=== PATIENT | male | born 1985 | race Caucasian/White ===

== ENCOUNTER 2016-07-31 23:25 | Emergency (ER) | payer OTHER ==
--- NOTE | 2016-08-01 00:35 | ED CLINICAL REPORT ---
Clinical Report - Physicians/Mid Levels [facility] [address] [place] [address] 07/31/2016 23:28 Patient: CORIN MUELLER Time Seen: 23:33; initial patient contact. Arrived- By private vehicle. Historian- patient. HISTORY OF PRESENT ILLNESS Chief Complaint: DENTAL PAIN. This started today and is still present. It was gradual in onset. Pain described as moderate. The patient has had toothache, swelling of the face and facial pain. No swollen jaw or jaw pain. Similar symptoms previously: Several times. Recent medical care: Not recently seen/assessed. REVIEW OF SYSTEMS No fever, nausea, headache or vomiting. All systems otherwise negative, except as recorded above. PAST HISTORY Broken ankle . Testicle removal SURGERIES: Ankle repair . Appendectomy. Fractured pelvis . Testical removal . SOCIAL HISTORY Smoker - current status unknown. History of drug use: marijuana. ADDITIONAL NOTES The nursing notes have been reviewed with agreement regarding the chief complaint, PMH and patient medications and allergies. PHYSICAL EXAM Vital Signs: 07/31/2016 23:33 BP: 119/75. HR: 79. RR: 20. O2 saturation: 95%. Temp: 98.3 F. Pain level now: 7/10. Have been reviewed as normal. Appearance: Alert. No acute distress. Head: Normal external inspection. Eyes: Conjunctivae and eyelids normal. ENT: Mild, localized dental decay (upper right second premolar, upper right first molar and second molar). Mild dental tenderness. Pharynx normal. Gums normal. No trismus present. Neck: No adenopathy. CVS: Normal heart rate and rhythm. Heart sounds normal. Respiratory: No respiratory distress. Breath sounds normal. PROGRESS AND PROCEDURES Disposition: Discharged home in good and improved condition. Condition: good. CLINICAL IMPRESSION Moderate dental pain. INSTRUCTIONS Your Current Medications: CONTINUE TAKING THE FOLLOWING MEDICATIONS: None*. Prescription Medications: Hydrocodone/APAP 5mg / 325mg: take 1 orally every 6 hours as needed for pain. Dispense fifteen (15). No refill. Zofran (orally disintegrating tablets) 4 mg: take 1 orally every 6 hours as needed for nausea and vomiting. Dispense ten (10). Substitution is permissible. Amoxicillin 500 mg tablets: take 1 orally every 12 hours for 7 days Follow-up: Follow up with your doctor in about three days. Call for an appointment. Screening today revealed the patient's blood pressure to be in the normal range. (Electronically signed by Sina Sosa Dr. 08/01/2016 1:41)
--- NOTE | 2016-08-01 00:35 | ED NURSING NOTES ---
Clinical Report - Nurses [facility] [address] [place] [place] [address] 07/31/2016 23:28 [id number] Triage time 23:33 Jul 31 2016. Acuity: LEVEL 4. Chief Complaint: RIGHT UPPER TOOTHACHE and JAW PAIN and SWELLING OF JAW / FACE. SEPSIS SCREEN: Sepsis Screen: negative. Negative (no infection suspected/documented). JUAN COMA SCORE: [place] Coma Scale: 15- eyes open spontaneously (4); best verbal response- oriented x 4 (5); best motor response- obeys commands (6). --23:39 Kaylee Ling 23:33 07/31/16. BP: 119/75. HR: 79. RR: 20. O2 saturation: 95% on room air. Temp: 98.3 F (oral). Pain level now: 11/30. --23:39 Kaylee Ling. Weight: 77.1 kg stated. Height/Length: 70 inches Per Patient. BMI: 24.4. --23:37 Kaylee Ling. Medications None. --23:34 Kaylee Ling. Medication/allergy information source: the patient. --23:39 Kaylee Ling. Allergies No Known Drug Allergy. --23:34 Kaylee Ling. History Arrived by private vehicle. Historian: patient. Accompanied by family. This started today. ( Patient reports he has some temporary root canals that he believes need to be repaired. Patient reports sudden onset of pain and some facial swelling.). He has no dental appointment scheduled. PAST MEDICAL HX: Immunizations: up-to-date. SOCIAL HX: Smoker- current status unknown. Occasional alcohol use. History of drug use: marijuana. No infectious disease exposure. ABUSE ASSESSMENT: No report of abuse. FALL RISK ASSESSMENT: Fall risk assessment completed. No fall risk identified. NUTRITIONAL RISK ASSESSMENT: The nutritional risk assessment revealed no deficiencies. FUNCTIONAL ASSESSMENT: Functional assessment: no impairments noted. LEARNING NEEDS ASSESSMENT: The learning needs assessment revealed no barriers. SKIN INTEGRITY ASSESSMENT: Skin integrity risk assessment completed. No skin integrity risk identified. --23:39 Sushil Kaylee. PROBLEMS: Broken ankle . Testical removal . --23:36 Sushil Kaylee. ADDITIONAL SURGERIES: Ankle repair . Appendectomy. Fractured pelvis . Testical removal . --23:36 Sushil Kaylee. Interventions ID band on patient. To treatment room. --23:39 Sushil Kaylee. PHYSICAL ASSESSMENT GENERAL / NEURO / PSYCH: Alert. Oriented X 4. Appears in no acute distress. HEENT: Facial swelling present involving the area around the right eye. Pupils equal, round and reactive to light. Dental decay. RESPIRATORY: Respirations not labored. SKIN: Skin is warm and dry. --23:39 Sushil Kaylee. NURSING PROGRESS NOTES Reassurance given to the patient. Two patient identifiers checked. Call light placed in reach. Side rails up x 1. Bed placed in lowest position. Brakes of bed on. Patient ready for evaluation- chart flagged. --23:39 Sushil Kaylee 23:57 07/31/2016 Motrin PO Tablets 400 mg given. Allergies verified and confirmed 5 rights. --00:02 Sushil Kaylee 00:02 08/01/2016 Hydrocodone-APAP (Hydrocodone-Acetaminophen) PO 5/325 mg Tablets 1 tab given. Allergies verified, confirmed 5 rights and sedative warning given to the patient and patient's weed inspector. --00:02 Sushil Kaylee 00:02 08/01/2016 Zofran ODT (Ondansetron) PO Oral Disintegrating Tablets 4 mg given. Allergies verified and confirmed 5 rights. --00:02 Sushil Kaylee. DISPOSITION / DISCHARGE Departure time: 00:44. Condition at departure: improved. No learning barriers present. Discharge instructions provided and reviewed with the patient. Reviewed medication(s) side effects, precautions, dosing and course information. Prescription(s) given to the patient. Treatments reviewed. Reviewed referrals. Follow up contact number dental care. Patient verbalized understanding. Written instructions provided in [place] [employer]. No activity restrictions or note given. The patient was discharged by the physician. He was discharged home and accompanied by spouse. He left the Emergency Department ambulatory and via private vehicle. Spouse driving. FALL RISK ASSESSMENT: Fall risk assessment completed. No fall risk identified. --00:45 Felicia Lopez 00:42 08/01/16. BP: 126/74. HR: 74. RR: 16. O2 saturation: 100%. Temp: deferred. Pain level now 07/31. --00:45 Felicia Lopez Locked/Released at 08/01/2016 0:46 by Felicia Lopez
--- NOTE | 2016-08-01 00:35 | ED CLINICAL REPORT ---
Clinical Report - Physicians/Mid Levels [facility] [address] [place] [address] 07/31/2016 23:28 Patient: CORIN MUELLER Time Seen: 23:33; initial patient contact. Arrived- By private vehicle. Historian- patient. HISTORY OF PRESENT ILLNESS Chief Complaint: DENTAL PAIN. This started today and is still present. It was gradual in onset. Pain described as moderate. The patient has had toothache, swelling of the face and facial pain. No swollen jaw or jaw pain. Similar symptoms previously: Several times. Recent medical care: Not recently seen/assessed. REVIEW OF SYSTEMS No fever, nausea, headache or vomiting. All systems otherwise negative, except as recorded above. PAST HISTORY Broken ankle . Testicle removal SURGERIES: Ankle repair . Appendectomy. Fractured pelvis . Testical removal . SOCIAL HISTORY Smoker - current status unknown. History of drug use: marijuana. ADDITIONAL NOTES The nursing notes have been reviewed with agreement regarding the chief complaint, PMH and patient medications and allergies. PHYSICAL EXAM Vital Signs: 07/31/2016 23:33 BP: 119/75. HR: 79. RR: 20. O2 saturation: 95%. Temp: 98.3 F. Pain level now: 7/10. Have been reviewed as normal. Appearance: Alert. No acute distress. Head: Normal external inspection. Eyes: Conjunctivae and eyelids normal. ENT: Mild, localized dental decay (upper right second premolar, upper right first molar and second molar). Mild dental tenderness. Pharynx normal. Gums normal. No trismus present. Neck: No adenopathy. CVS: Normal heart rate and rhythm. Heart sounds normal. Respiratory: No respiratory distress. Breath sounds normal. PROGRESS AND PROCEDURES Disposition: Discharged home in good and improved condition. Condition: good. CLINICAL IMPRESSION Moderate dental pain. INSTRUCTIONS Your Current Medications: CONTINUE TAKING THE FOLLOWING MEDICATIONS: None*. Prescription Medications: Hydrocodone/APAP 5mg / 325mg: take 1 orally every 6 hours as needed for pain. Dispense fifteen (15). No refill. Zofran (orally disintegrating tablets) 4 mg: take 1 orally every 6 hours as needed for nausea and vomiting. Dispense ten (10). Substitution is permissible. Amoxicillin 500 mg tablets: take 1 orally every 12 hours for 7 days Follow-up: Follow up with your doctor in about three days. Call for an appointment. Screening today revealed the patient's blood pressure to be in the normal range. (Electronically signed by Sina Sosa Dr. 08/01/2016 1:41)
--- NOTE | 2016-08-01 00:35 | ED NURSING NOTES ---
Clinical Report - Nurses [facility] [address] [place] [address] 07/31/2016 23:28 [id number] Triage time 23:33 Jul 31 2016. Acuity: LEVEL 4. Chief Complaint: RIGHT UPPER TOOTHACHE and JAW PAIN and SWELLING OF JAW / FACE. SEPSIS SCREEN: Sepsis Screen: negative. Negative (no infection suspected/documented). JUAN COMA SCORE: [place] Coma Scale: 15- eyes open spontaneously (4); best verbal response- oriented x 4 (5); best motor response- obeys commands (6). --23:39 Kaylee Ling 23:33 07/31/16. BP: 119/75. HR: 79. RR: 20. O2 saturation: 95% on room air. Temp: 98.3 F (oral). Pain level now: 11/30. --23:39 Kaylee Ling. Weight: 77.1 kg stated. Height/Length: 70 inches Per Patient. BMI: 24.4. --23:37 Kaylee Ling. Medications None. --23:34 Kaylee Ling. Medication/allergy information source: the patient. --23:39 Kaylee Ling. Allergies No Known Drug Allergy. --23:34 Kaylee Ling. History Arrived by private vehicle. Historian: patient. Accompanied by family. This started today. ( Patient reports he has some temporary root canals that he believes need to be repaired. Patient reports sudden onset of pain and some facial swelling.). He has no dental appointment scheduled. PAST MEDICAL HX: Immunizations: up-to-date. SOCIAL HX: Smoker- current status unknown. Occasional alcohol use. History of drug use: marijuana. No infectious disease exposure. ABUSE ASSESSMENT: No report of abuse. FALL RISK ASSESSMENT: Fall risk assessment completed. No fall risk identified. NUTRITIONAL RISK ASSESSMENT: The nutritional risk assessment revealed no deficiencies. FUNCTIONAL ASSESSMENT: Functional assessment: no impairments noted. LEARNING NEEDS ASSESSMENT: The learning needs assessment revealed no barriers. SKIN INTEGRITY ASSESSMENT: Skin integrity risk assessment completed. No skin integrity risk identified. --23:39 Sushil Kaylee. PROBLEMS: Broken ankle . Testical removal . --23:36 Sushil Kaylee. ADDITIONAL SURGERIES: Ankle repair . Appendectomy. Fractured pelvis . Testical removal . --23:36 Sushil Kaylee. Interventions ID band on patient. To treatment room. --23:39 Sushil Kaylee. PHYSICAL ASSESSMENT GENERAL / NEURO / PSYCH: Alert. Oriented X 4. Appears in no acute distress. HEENT: Facial swelling present involving the area around the right eye. Pupils equal, round and reactive to light. Dental decay. RESPIRATORY: Respirations not labored. SKIN: Skin is warm and dry. --23:39 Sushil Kaylee. NURSING PROGRESS NOTES Reassurance given to the patient. Two patient identifiers checked. Call light placed in reach. Side rails up x 1. Bed placed in lowest position. Brakes of bed on. Patient ready for evaluation- chart flagged. --23:39 Sushil Kaylee 23:57 07/31/2016 Motrin PO Tablets 400 mg given. Allergies verified and confirmed 5 rights. --00:02 Sushil Kaylee 00:02 08/01/2016 Hydrocodone-APAP (Hydrocodone-Acetaminophen) PO 5/325 mg Tablets 1 tab given. Allergies verified, confirmed 5 rights and sedative warning given to the patient and patient's furniture servicer. --00:02 Sushil Kaylee 00:02 08/01/2016 Zofran ODT (Ondansetron) PO Oral Disintegrating Tablets 4 mg given. Allergies verified and confirmed 5 rights. --00:02 Sushil Kaylee. DISPOSITION / DISCHARGE Departure time: 00:44. Condition at departure: improved. No learning barriers present. Discharge instructions provided and reviewed with the patient. Reviewed medication(s) side effects, precautions, dosing and course information. Prescription(s) given to the patient. Treatments reviewed. Reviewed referrals. Follow up contact number dental care. Patient verbalized understanding. Written instructions provided in [place]. No activity restrictions or note given. The patient was discharged by the physician. He was discharged home and accompanied by spouse. He left the Emergency Department ambulatory and via private vehicle. Spouse driving. FALL RISK ASSESSMENT: Fall risk assessment completed. No fall risk identified. --00:45 Felicia Lopez 00:42 08/01/16. BP: 126/74. HR: 74. RR: 16. O2 saturation: 100%. Temp: deferred. Pain level now 07/31. --00:45 Felicia Lopez Locked/Released at 08/01/2016 0:46 by Felicia Lopez
--- NOTE | 2016-08-01 00:36 | ED ORDER SUMMARY ---
..... Patient: CORIN MUELLER OrderSheet [facility] VisitID: [id number] [address] [place] [address] 31y, M Registration Date/Time: 07/31/2016 ORDER SHEET Weight: 77.1 kg (stated) Allergies: No Known Drug Allergy GENERAL ORDERS: MEDICATION ORDERS: Motrin PO 400 mg (NOW) (23:54 07/31/2016 Lisette Maldonado) (Ack 23:55 HSoule) (0:02 HSoule) Hydrocodone-APAP PO 5/325 mg (NOW, HIGH ALERT MEDICATION) (23:55 07/31/2016 Lisette Maldonado) (Ack 23:55 HSoule) (0:02 HSoule) Zofran ODT PO 4 mg (NOW) (00:02 08/01/2016 HSoule verbal order read back to Lisette Maldonado) (0:02 HSoule) IV FLUIDS: ORDER SHEET NOTES: [Electronically signed by Janis Rg R.N. (00:46 08/01/2016)] [Electronically signed by Sina Sosa Dr. (01:41 08/01/2016)] [Electronically locked/signed by Janis Rg R.N. (00:46 08/01/2016)]
--- NOTE | 2016-08-01 00:36 | ED ORDER SUMMARY ---
..... Patient: CORIN MUELLER OrderSheet [facility] VisitID: [id number] [address] [place] [address] 31y, M Registration Date/Time: 07/31/2016 ORDER SHEET Weight: 77.1 kg (stated) Allergies: No Known Drug Allergy GENERAL ORDERS: MEDICATION ORDERS: Motrin PO 400 mg (NOW) (23:54 07/31/2016 Lisette Maldonado) (Ack 23:55 HSoule) (0:02 HSoule) Hydrocodone-APAP PO 5/325 mg (NOW, HIGH ALERT MEDICATION) (23:55 07/31/2016 Lisette Maldonado) (Ack 23:55 HSoule) (0:02 HSoule) Zofran ODT PO 4 mg (NOW) (00:02 08/01/2016 HSoule verbal order read back to Lisette Maldonado) (0:02 HSoule) IV FLUIDS: ORDER SHEET NOTES: [Electronically signed by Janis Rg R.N. (00:46 08/01/2016)] [Electronically signed by Sina Sosa Dr. (01:41 08/01/2016)] [Electronically locked/signed by Janis Rg R.N. (00:46 08/01/2016)]
--- NOTE | 2016-08-01 01:41 | ED MAR SUMMARY ---
..... Medication Administration Record [facility] [address] [place] [address] Patient: CORIN MUELLER Visit ID: [id number] 31y, M Weight: 77.1 kg Height/Length: 70 in BMI: 24.4 ALLERGIES: No Known Drug Allergy Given 23:57 07/31/2016 Kaylee Ling, Medication Administered: MOTRIN [PO], Dose: 400 mg Tablets PO. Medication Ordered: Motrin PO 400 mg (NOW). Given 00:02 08/01/2016 Kaylee Ling, Medication Administered: HYDROCODONE-APAP [PO] (HYDROCODONE-ACETAMINOPHEN), Dose: 1 tab 5/325 mg Tablets PO. Medication Ordered: Hydrocodone-APAP PO 5/325 mg (NOW, HIGH ALERT MEDICATION). Given 00:02 08/01/2016 Kaylee Ling, Medication Administered: ZOFRAN ODT [PO] (ONDANSETRON), Dose: 4 mg Oral Disintegrating Tablets PO. Medication Ordered: Zofran ODT PO 4 mg (NOW).
--- NOTE | 2016-08-01 01:41 | ED DISCHARGE INSTRUCTIONS ---
Patient: CORIN MUELLER General Instructions [facility] VisitID: [id number] [place] [address] 31y, M Registration Date/Time: 07/31/2016 Moderate dental pain. INSTRUCTIONS Your Current Medications: CONTINUE TAKING THE FOLLOWING MEDICATIONS: None*. Prescription Medications: Hydrocodone/APAP 5mg / 325mg: take 1 orally every 6 hours as needed for pain. Dispense fifteen (15). No refill. Zofran (orally disintegrating tablets) 4 mg: take 1 orally every 6 hours as needed for nausea and vomiting. Dispense ten (10). Substitution is permissible. Amoxicillin 500 mg tablets: take 1 orally every 12 hours for 7 days Follow-up: Follow up with your doctor in about three days. Call for an appointment. Screening today revealed the patient's blood pressure to be in the normal range. ADDITIONAL INFORMATION Dental Pain A crack or cavity in the tooth, which exposes the sensitive inner area of the tooth can cause tooth pain. An infection in the gum or the root of the tooth can cause pain and swelling. The pain is often made worse by drinking hot or cold fluids, or biting on hard foods. Pain may spread from the tooth to the ear or jaw on the same side. Home Care: Avoid hot and cold foods and liquids since your tooth may be sensitive to temperature changes. If your tooth is chipped or cracked, or if there is a large open cavity, apply OIL OF CLOVES (available [id number]-[id number] in drug stores) directly to the tooth to reduce pain. Some pharmacies carry an [id number]-[id number] "toothache kit." This contains a paste, which can be applied over the exposed tooth to decrease sensitivity. A cold pack on your jaw over the sore area may help reduce pain. You may use acetaminophen (Tylenol) or ibuprofen (Motrin, Advil) to control pain, unless another medicine was prescribed. [ NOTE: If you have chronic liver or kidney disease or ever had a stomach ulcer or GI bleeding, talk with your doctor before using these medicines.] If you have signs of an infection, an antibiotic will be given. Take it as directed. Follow-Up as directed with a dentist. Your pain may go away with the treatment given. However, only a dentist can fully evaluate and treat the cause and prevent the pain from coming back again. TOOTHACHE IS A SIGN OF DISEASE IN YOUR TOOTH AND SHOULD BE EXAMINED AND TREATED BY A DENTIST. Get Prompt Medical Attention if any of the following occur: Your face becomes swollen or red Pain worsens or spreads to the neck Fever over 100.4 F (38.0 C) Unusual drowsiness; headache or stiff neck; weakness or fainting Pus drains from the tooth Difficulty swallowing or breathing Hydrocodone Bitartrate, Acetaminophen Oral tablet What is this medicine? ACETAMINOPHEN; HYDROCODONE (a set a MALIK gamaliel fen; rishabh droe KOE done) is a pain reliever. It is used to treat mild to moderate pain. How should I use this medicine? Take this medicine by mouth. Swallow it with a full glass of water. Follow the directions on the prescription label. If the medicine upsets your stomach, take the medicine with food or milk. Do not take more than you are told to take. Talk to your commercial fisher regarding the use of this medicine in children. This medicine is not approved for use in children. What side effects may I notice from receiving this medicine? Side effects that you should report to your doctor or health medicare sales representative as soon as possible: allergic reactions like skin rash, itching or hives, swelling of the face, lips, or tongue breathing problems confusion feeling faint or lightheaded, falls stomach pain yellowing of the eyes or skin Side effects that usually do not require medical attention (report to your doctor or health medicare sales representative if they continue or are bothersome): nausea, vomiting stomach upset What may interact with this medicine? alcohol antihistamines isoniazid medicines for depression, anxiety, or psychotic disturbances medicines for sleep muscle relaxants naltrexone narcotic medicines (opiates) for pain phenobarbital ritonavir tramadol What if I miss a dose? If you miss a dose, take it as soon as you can. If it is almost time for your next dose, take only that dose. Do not take double or extra doses. Where should I keep my medicine? Keep out of the reach of children. This medicine can be abused. Keep your medicine in a safe place to protect it from theft. Do not share this medicine with anyone. Selling or giving away this medicine is dangerous and against the law. Store at room temperature between 15 and 30 degrees C (59 and 86 degrees F). Protect from light. Keep container tightly closed. Throw away any unused medicine after the expiration date. Discard unused medicine and used packaging carefully. Pets and children can be harmed if they find used or lost packages. What should I tell my health care provider before I take this medicine? They need to know if you have any of these conditions: brain tumor Crohn's disease, inflammatory bowel disease, or ulcerative colitis drink more than 3 alcohol-containing drinks per day drug abuse or addiction head injury heart or circulation problems kidney disease or problems going to the bathroom liver disease lung disease, asthma, or breathing problems an unusual or allergic reaction to acetaminophen, hydrocodone, other opioid analgesics, other medicines, foods, dyes, or preservatives or trying to get breast-feeding What should I watch for while using this medicine? Tell your doctor or health medicare sales representative if your pain does not go away, if it gets worse, or if you have new or a different type of pain. You may develop tolerance to the medicine. Tolerance means that you will need a higher dose of the medicine for pain relief. Tolerance is normal and is expected if you take the medicine for a long time. Do not suddenly stop taking your medicine because you may develop a severe reaction. Your body becomes used to the medicine. This does NOT mean you are addicted. Addiction is a behavior related to getting and using a drug for a non-medical reason. If you have pain, you have a medical reason to take pain medicine. Your doctor will tell you how much medicine to take. If your doctor wants you to stop the medicine, the dose will be slowly lowered over time to avoid any side effects. You may get drowsy or dizzy when you first start taking the medicine or change doses. Do not drive, use machinery, or do anything that may be dangerous until you know how the medicine affects you. Stand or sit up slowly. There are different types of narcotic medicines (opiates) for pain. If you take more than one type at the same time, you may have more side effects. Give your health care provider a list of all medicines you use. Your doctor will tell you how much medicine to take. Do not take more medicine than directed. Call emergency for help if you have problems breathing. The medicine will cause constipation. Try to have a bowel movement at least every 2 to 3 days. If you do not have a bowel movement for 3 days, call your doctor or health medicare sales representative. Too much acetaminophen can be very dangerous. Do not take Tylenol (acetaminophen) or medicines that contain acetaminophen with this medicine. Many non-prescription medicines contain acetaminophen. Always read the labels carefully. Ondansetron Oral disintegrating tablet What is this medicine? ONDANSETRON (on SPENCER se wyatt) is used to treat nausea and vomiting caused by chemotherapy. It is also used to prevent or treat nausea and vomiting after surgery. How should I use this medicine? These tablets are made to dissolve in the mouth. Do not try to push the tablet through the foil backing. With dry hands, peel away the foil backing and gently remove the tablet. Place the tablet in the mouth and allow it to dissolve, then swallow. While you may take these tablets with water, it is not necessary to do so. Talk to your commercial fisher regarding the use of this medicine in children. Special care may be needed. What side effects may I notice from receiving this medicine? Side effects that you should report to your doctor or health medicare sales representative as soon as possible: allergic reactions like skin rash, itching or hives, swelling of the face, lips, or tongue breathing problems dizziness fast or irregular heartbeat feeling faint or lightheaded, falls fever and chills swelling of the hands and feet tightness in the chest Side effects that usually do not require medical attention (report to your doctor or health medicare sales representative if they continue or are bothersome): constipation or diarrhea headache What may interact with this medicine? Do not take this medicine with any of the following medications: -apomorphine -cisapride -dofetilide -dronedarone -pimozide -thioridazine -ziprasidone This medicine may also interact with the following medications: -carbamazepine -phenytoin -rifampicin -tramadol -other medicines that prolong the QT interval (cause an abnormal heart rhythm) What if I miss a dose? If you miss a dose, take it as soon as you can. If it is almost time for your next dose, take only that dose. Do not take double or extra doses. Where should I keep my medicine? Keep out of the reach of children. Store between 2 and 30 degrees C (36 and 86 degrees F). Throw away any unused medicine after the expiration date. What should I tell my health care provider before I take this medicine? They need to know if you have any of these conditions: heart disease history of irregular heartbeat liver disease low levels of magnesium or potassium in the blood an unusual or allergic reaction to ondansetron, granisetron, other medicines, foods, dyes, or preservatives or trying to get breast-feeding What should I watch for while using this medicine? Check with your doctor or health medicare sales representative as soon as you can if you have any sign of an allergic reaction. Amoxicillin Trihydrate Oral tablet What is this medicine? AMOXICILLIN (a mox i ROOSEVELT in) is a penicillin antibiotic. It is used to treat certain kinds of bacterial infections. It will not work for colds, flu, or other viral infections. How should I use this medicine? Take this medicine by mouth with a glass of water. Follow the directions on your prescription label. You may take this medicine with food or on an empty stomach. Take your medicine at regular intervals. Do not take your medicine more often than directed. Take all of your medicine as directed even if you think your are better. Do not skip doses or stop your medicine early. Talk to your commercial fisher regarding the use of this medicine in children. While this drug may be prescribed for selected conditions, precautions do apply. What side effects may I notice from receiving this medicine? Side effects that you should report to your doctor or health medicare sales representative as soon as possible: allergic reactions like skin rash, itching or hives, swelling of the face, lips, or tongue breathing problems dark urine redness, blistering, peeling or loosening of the skin, including inside the mouth seizures severe or watery diarrhea trouble passing urine or change in the amount of urine unusual bleeding or bruising unusually weak or tired yellowing of the eyes or skin Side effects that usually do not require medical attention (report to your doctor or health medicare sales representative if they continue or are bothersome): dizziness headache stomach upset trouble sleeping What may interact with this medicine? amiloride control pills chloramphenicol macrolides probenecid sulfonamides tetracyclines What if I miss a dose? If you miss a dose, take it as soon as you can. If it is almost time for your next dose, take only that dose. Do not take double or extra doses. Where should I keep my medicine? Keep out of the reach of children. Store between 68 and 77 degrees F (20 and 25 degrees C). Keep bottle closed tightly. Throw away any unused medicine after the expiration date. What should I tell my health care provider before I take this medicine? They need to know if you have any of these conditions: asthma kidney disease an unusual or allergic reaction to amoxicillin, other penicillins, cephalosporin antibiotics, other medicines, foods, dyes, or preservatives or trying to get breast-feeding What should I watch for while using this medicine? Tell your doctor or health medicare sales representative if your symptoms do not improve in 2 or 3 days. Take all of the doses of your medicine as directed. Do not skip doses or stop your medicine early. If you are diabetic, you may get a false positive result for sugar in your urine with certain brands of urine tests. Check with your doctor. Do not treat diarrhea with [id number]-[id number]-[id number] products. Contact your doctor if you have diarrhea that lasts more than 2 days or if the diarrhea is severe and watery. You have been given the following additional information: Dental Pain Hydrocodone Bitartrate, Acetaminophen Oral tablet Ondansetron Oral disintegrating tablet Amoxicillin Trihydrate Oral tablet (Electronically signed by Sina Sosa Dr. 08/01/2016 1:41)
--- NOTE | 2016-08-01 01:41 | ED MED RECONCILIATION SUMMARY ---
Patient: CORIN MUELLER Medication Reconciliation Report [facility] VisitID: [id number] [address] [place] [address] 31y, M Registration Date/Time: 07/31/2016 Weight: 77.1 kg Height/Length: 70 in. BMI: 24.4 ALLERGIES: No Known Drug Allergy The patient's Home Medications are listed below: NONE. The source(s) of the original Home Medication information: patient The following Medications were given to the patient in the Emergency Department: Motrin [PO] PO 400 mg, administered: 07/31/2016 11:57:00 PM Hydrocodone-APAP [PO] PO 1 tab, administered: 08/01/2016 12:02:00 AM Zofran ODT [PO] PO 4 mg, administered: 08/01/2016 12:02:00 AM The following Medications were prescribed to the patient: Hydrocodone/APAP 5mg / 325mg: take 1 orally every 6 hours as needed for pain. Dispense fifteen (15). No refill. -- Sina Sosa Dr. Zofran (orally disintegrating tablets) 4 mg: take 1 orally every 6 hours as needed for nausea and vomiting. Dispense ten (10). Substitution is permissible. -- Sina Sosa Dr. Amoxicillin 500 mg tablets: take 1 orally every 12 hours for 7 days -- Sina Sosa Dr.
--- NOTE | 2016-08-01 01:41 | ED MAR SUMMARY ---
..... Medication Administration Record [facility] [address] [place] [address] Patient: CORIN MUELLER Visit ID: [id number] 31y, M Weight: 77.1 kg Height/Length: 70 in BMI: 24.4 ALLERGIES: No Known Drug Allergy Given 23:57 07/31/2016 Kaylee Ling, Medication Administered: MOTRIN [PO], Dose: 400 mg Tablets PO. Medication Ordered: Motrin PO 400 mg (NOW). Given 00:02 08/01/2016 Kaylee Ling, Medication Administered: HYDROCODONE-APAP [PO] (HYDROCODONE-ACETAMINOPHEN), Dose: 1 tab 5/325 mg Tablets PO. Medication Ordered: Hydrocodone-APAP PO 5/325 mg (NOW, HIGH ALERT MEDICATION). Given 00:02 08/01/2016 Kaylee Ling, Medication Administered: ZOFRAN ODT [PO] (ONDANSETRON), Dose: 4 mg Oral Disintegrating Tablets PO. Medication Ordered: Zofran ODT PO 4 mg (NOW).
--- NOTE | 2016-08-01 01:41 | ED MED RECONCILIATION SUMMARY ---
Patient: CORIN MUELLER Medication Reconciliation Report [facility] VisitID: [id number] [address] [place] [address] 31y, M Registration Date/Time: 07/31/2016 Weight: 77.1 kg Height/Length: 70 in. BMI: 24.4 ALLERGIES: No Known Drug Allergy The patient's Home Medications are listed below: NONE. The source(s) of the original Home Medication information: patient The following Medications were given to the patient in the Emergency Department: Motrin [PO] PO 400 mg, administered: 07/31/2016 11:57:00 PM Hydrocodone-APAP [PO] PO 1 tab, administered: 08/01/2016 12:02:00 AM Zofran ODT [PO] PO 4 mg, administered: 08/01/2016 12:02:00 AM The following Medications were prescribed to the patient: Hydrocodone/APAP 5mg / 325mg: take 1 orally every 6 hours as needed for pain. Dispense fifteen (15). No refill. -- Sina Sosa Dr. Zofran (orally disintegrating tablets) 4 mg: take 1 orally every 6 hours as needed for nausea and vomiting. Dispense ten (10). Substitution is permissible. -- Sina Sosa Dr. Amoxicillin 500 mg tablets: take 1 orally every 12 hours for 7 days -- Sina Sosa Dr.
--- NOTE | 2016-08-01 01:41 | ED DISCHARGE INSTRUCTIONS ---
Patient: CORIN MUELLER General Instructions [facility] VisitID: [id number] [place] [address] 31y, M Registration Date/Time: 07/31/2016 Moderate dental pain. INSTRUCTIONS Your Current Medications: CONTINUE TAKING THE FOLLOWING MEDICATIONS: None*. Prescription Medications: Hydrocodone/APAP 5mg / 325mg: take 1 orally every 6 hours as needed for pain. Dispense fifteen (15). No refill. Zofran (orally disintegrating tablets) 4 mg: take 1 orally every 6 hours as needed for nausea and vomiting. Dispense ten (10). Substitution is permissible. Amoxicillin 500 mg tablets: take 1 orally every 12 hours for 7 days Follow-up: Follow up with your doctor in about three days. Call for an appointment. Screening today revealed the patient's blood pressure to be in the normal range. ADDITIONAL INFORMATION Dental Pain A crack or cavity in the tooth, which exposes the sensitive inner area of the tooth can cause tooth pain. An infection in the gum or the root of the tooth can cause pain and swelling. The pain is often made worse by drinking hot or cold fluids, or biting on hard foods. Pain may spread from the tooth to the ear or jaw on the same side. Home Care: Avoid hot and cold foods and liquids since your tooth may be sensitive to temperature changes. If your tooth is chipped or cracked, or if there is a large open cavity, apply OIL OF CLOVES (available [id number]-[id number] in drug stores) directly to the tooth to reduce pain. Some pharmacies carry an nhyk-bzz-lzrlhlm "toothache kit." This contains a paste, which can be applied over the exposed tooth to decrease sensitivity. A cold pack on your jaw over the sore area may help reduce pain. You may use acetaminophen (Tylenol) or ibuprofen (Motrin, Advil) to control pain, unless another medicine was prescribed. [ NOTE: If you have chronic liver or kidney disease or ever had a stomach ulcer or GI bleeding, talk with your doctor before using these medicines.] If you have signs of an infection, an antibiotic will be given. Take it as directed. Follow-Up as directed with a dentist. Your pain may go away with the treatment given. However, only a dentist can fully evaluate and treat the cause and prevent the pain from coming back again. TOOTHACHE IS A SIGN OF DISEASE IN YOUR TOOTH AND SHOULD BE EXAMINED AND TREATED BY A DENTIST. Get Prompt Medical Attention if any of the following occur: Your face becomes swollen or red Pain worsens or spreads to the neck Fever over 100.4 F (38.0 C) Unusual drowsiness; headache or stiff neck; weakness or fainting Pus drains from the tooth Difficulty swallowing or breathing Hydrocodone Bitartrate, Acetaminophen Oral tablet What is this medicine? ACETAMINOPHEN; HYDROCODONE (a set a MALIK gamaliel fen; rishabh droe KOE done) is a pain reliever. It is used to treat mild to moderate pain. How should I use this medicine? Take this medicine by mouth. Swallow it with a full glass of water. Follow the directions on the prescription label. If the medicine upsets your stomach, take the medicine with food or milk. Do not take more than you are told to take. Talk to your profile saw setup operator regarding the use of this medicine in children. This medicine is not approved for use in children. What side effects may I notice from receiving this medicine? Side effects that you should report to your doctor or health student career development specialist as soon as possible: allergic reactions like skin rash, itching or hives, swelling of the face, lips, or tongue breathing problems confusion feeling faint or lightheaded, falls stomach pain yellowing of the eyes or skin Side effects that usually do not require medical attention (report to your doctor or health student career development specialist if they continue or are bothersome): nausea, vomiting stomach upset What may interact with this medicine? alcohol antihistamines isoniazid medicines for depression, anxiety, or psychotic disturbances medicines for sleep muscle relaxants naltrexone narcotic medicines (opiates) for pain phenobarbital ritonavir tramadol What if I miss a dose? If you miss a dose, take it as soon as you can. If it is almost time for your next dose, take only that dose. Do not take double or extra doses. Where should I keep my medicine? Keep out of the reach of children. This medicine can be abused. Keep your medicine in a safe place to protect it from theft. Do not share this medicine with anyone. Selling or giving away this medicine is dangerous and against the law. Store at room temperature between 15 and 30 degrees C (59 and 86 degrees F). Protect from light. Keep container tightly closed. Throw away any unused medicine after the expiration date. Discard unused medicine and used packaging carefully. Pets and children can be harmed if they find used or lost packages. What should I tell my health care provider before I take this medicine? They need to know if you have any of these conditions: brain tumor Crohn's disease, inflammatory bowel disease, or ulcerative colitis drink more than 3 alcohol-containing drinks per day drug abuse or addiction head injury heart or circulation problems kidney disease or problems going to the bathroom liver disease lung disease, asthma, or breathing problems an unusual or allergic reaction to acetaminophen, hydrocodone, other opioid analgesics, other medicines, foods, dyes, or preservatives or trying to get breast-feeding What should I watch for while using this medicine? Tell your doctor or health student career development specialist if your pain does not go away, if it gets worse, or if you have new or a different type of pain. You may develop tolerance to the medicine. Tolerance means that you will need a higher dose of the medicine for pain relief. Tolerance is normal and is expected if you take the medicine for a long time. Do not suddenly stop taking your medicine because you may develop a severe reaction. Your body becomes used to the medicine. This does NOT mean you are addicted. Addiction is a behavior related to getting and using a drug for a non-medical reason. If you have pain, you have a medical reason to take pain medicine. Your doctor will tell you how much medicine to take. If your doctor wants you to stop the medicine, the dose will be slowly lowered over time to avoid any side effects. You may get drowsy or dizzy when you first start taking the medicine or change doses. Do not drive, use machinery, or do anything that may be dangerous until you know how the medicine affects you. Stand or sit up slowly. There are different types of narcotic medicines (opiates) for pain. If you take more than one type at the same time, you may have more side effects. Give your health care provider a list of all medicines you use. Your doctor will tell you how much medicine to take. Do not take more medicine than directed. Call emergency for help if you have problems breathing. The medicine will cause constipation. Try to have a bowel movement at least every 2 to 3 days. If you do not have a bowel movement for 3 days, call your doctor or health student career development specialist. Too much acetaminophen can be very dangerous. Do not take Tylenol (acetaminophen) or medicines that contain acetaminophen with this medicine. Many non-prescription medicines contain acetaminophen. Always read the labels carefully. Ondansetron Oral disintegrating tablet What is this medicine? ONDANSETRON (on SPENCER se wyatt) is used to treat nausea and vomiting caused by chemotherapy. It is also used to prevent or treat nausea and vomiting after surgery. How should I use this medicine? These tablets are made to dissolve in the mouth. Do not try to push the tablet through the foil backing. With dry hands, peel away the foil backing and gently remove the tablet. Place the tablet in the mouth and allow it to dissolve, then swallow. While you may take these tablets with water, it is not necessary to do so. Talk to your profile saw setup operator regarding the use of this medicine in children. Special care may be needed. What side effects may I notice from receiving this medicine? Side effects that you should report to your doctor or health student career development specialist as soon as possible: allergic reactions like skin rash, itching or hives, swelling of the face, lips, or tongue breathing problems dizziness fast or irregular heartbeat feeling faint or lightheaded, falls fever and chills swelling of the hands and feet tightness in the chest Side effects that usually do not require medical attention (report to your doctor or health student career development specialist if they continue or are bothersome): constipation or diarrhea headache What may interact with this medicine? Do not take this medicine with any of the following medications: -apomorphine -cisapride -dofetilide -dronedarone -pimozide -thioridazine -ziprasidone This medicine may also interact with the following medications: -carbamazepine -phenytoin -rifampicin -tramadol -other medicines that prolong the QT interval (cause an abnormal heart rhythm) What if I miss a dose? If you miss a dose, take it as soon as you can. If it is almost time for your next dose, take only that dose. Do not take double or extra doses. Where should I keep my medicine? Keep out of the reach of children. Store between 2 and 30 degrees C (36 and 86 degrees F). Throw away any unused medicine after the expiration date. What should I tell my health care provider before I take this medicine? They need to know if you have any of these conditions: heart disease history of irregular heartbeat liver disease low levels of magnesium or potassium in the blood an unusual or allergic reaction to ondansetron, granisetron, other medicines, foods, dyes, or preservatives or trying to get breast-feeding What should I watch for while using this medicine? Check with your doctor or health student career development specialist as soon as you can if you have any sign of an allergic reaction. Amoxicillin Trihydrate Oral tablet What is this medicine? AMOXICILLIN (a mox i ROOSEVELT in) is a penicillin antibiotic. It is used to treat certain kinds of bacterial infections. It will not work for colds, flu, or other viral infections. How should I use this medicine? Take this medicine by mouth with a glass of water. Follow the directions on your prescription label. You may take this medicine with food or on an empty stomach. Take your medicine at regular intervals. Do not take your medicine more often than directed. Take all of your medicine as directed even if you think your are better. Do not skip doses or stop your medicine early. Talk to your profile saw setup operator regarding the use of this medicine in children. While this drug may be prescribed for selected conditions, precautions do apply. What side effects may I notice from receiving this medicine? Side effects that you should report to your doctor or health student career development specialist as soon as possible: allergic reactions like skin rash, itching or hives, swelling of the face, lips, or tongue breathing problems dark urine redness, blistering, peeling or loosening of the skin, including inside the mouth seizures severe or watery diarrhea trouble passing urine or change in the amount of urine unusual bleeding or bruising unusually weak or tired yellowing of the eyes or skin Side effects that usually do not require medical attention (report to your doctor or health student career development specialist if they continue or are bothersome): dizziness headache stomach upset trouble sleeping What may interact with this medicine? amiloride control pills chloramphenicol macrolides probenecid sulfonamides tetracyclines What if I miss a dose? If you miss a dose, take it as soon as you can. If it is almost time for your next dose, take only that dose. Do not take double or extra doses. Where should I keep my medicine? Keep out of the reach of children. Store between 68 and 77 degrees F (20 and 25 degrees C). Keep bottle closed tightly. Throw away any unused medicine after the expiration date. What should I tell my health care provider before I take this medicine? They need to know if you have any of these conditions: asthma kidney disease an unusual or allergic reaction to amoxicillin, other penicillins, cephalosporin antibiotics, other medicines, foods, dyes, or preservatives or trying to get breast-feeding What should I watch for while using this medicine? Tell your doctor or health student career development specialist if your symptoms do not improve in 2 or 3 days. Take all of the doses of your medicine as directed. Do not skip doses or stop your medicine early. If you are diabetic, you may get a false positive result for sugar in your urine with certain brands of urine tests. Check with your doctor. Do not treat diarrhea with [id number] products. Contact your doctor if you have diarrhea that lasts more than 2 days or if the diarrhea is severe and watery. You have been given the following additional information: Dental Pain Hydrocodone Bitartrate, Acetaminophen Oral tablet Ondansetron Oral disintegrating tablet Amoxicillin Trihydrate Oral tablet (Electronically signed by Sina Sosa Dr. 08/01/2016 1:41)
== END 2016-08-01 00:40 | disposition home or self-care (01) ==
LOC: ED SRH 23:25
DX: K08.89 Other specified disorders of teeth and supporting structures (principal)